=== PATIENT | female | born 1965 | race African-American/Black ===

== ENCOUNTER 2016-07-02 12:26 | Outpatient (CLI) | payer MEDICARE, MEDICAID | END 2016-07-02 12:28 | LOC: POD 12:26 | PROVIDERS: ATTEND Podiatrist | DX: E11.9 Type 2 diabetes mellitus without complications (principal); B35.1 Tinea unguium; M79.674 Pain in right toe(s); M79.675 Pain in left toe(s) | CPT/HCPCS: G0463 ==

== ENCOUNTER 2016-10-01 13:09 | Outpatient (CLI) | payer MEDICARE, OTHER | END 2016-10-01 13:10 | LOC: POD 13:09 | PROVIDERS: ATTEND Podiatrist | DX: B35.1 Tinea unguium (principal); M79.674 Pain in right toe(s); M79.675 Pain in left toe(s) | CPT/HCPCS: 11721; G0463 ==

== ENCOUNTER 2016-12-28 14:41 | Outpatient (CLI) | payer MEDICARE, OTHER | END 2016-12-28 14:42 | LOC: CARD 14:41 | PROVIDERS: ATTEND Internal Medicine Cardiovascular Disease | DX: I27.2 Other secondary pulmonary hypertension (principal) | CPT/HCPCS: G0463 ==

== ENCOUNTER 2016-12-31 13:11 | Outpatient (CLI) | payer MEDICARE, OTHER | END 2016-12-31 13:12 | LOC: POD 13:11 | PROVIDERS: ATTEND Podiatrist | DX: B35.1 Tinea unguium (principal); M79.674 Pain in right toe(s); M79.675 Pain in left toe(s) | CPT/HCPCS: 11721; G0463 ==

== ENCOUNTER 2017-04-15 13:19 | Outpatient (CLI) | payer MEDICARE, OTHER | END 2017-04-15 13:20 | LOC: POD 13:19 | PROVIDERS: ATTEND Podiatrist | DX: B35.1 Tinea unguium (principal); M79.674 Pain in right toe(s); M79.675 Pain in left toe(s) | CPT/HCPCS: 11721; G0463 ==

== ENCOUNTER 2017-07-15 13:31 | Outpatient (CLI) | payer MEDICARE, OTHER | END 2017-07-15 13:40 | LOC: POD 13:31 | PROVIDERS: ATTEND Podiatrist | DX: B35.1 Tinea unguium (principal); M79.674 Pain in right toe(s); M79.675 Pain in left toe(s); E11.42 Type 2 diabetes mellitus with diabetic polyneuropathy | CPT/HCPCS: 11721; G0463 ==

== ENCOUNTER 2017-07-26 12:17 | Outpatient (CLI) | payer MEDICARE, OTHER | END 2017-07-26 12:18 | LOC: CARD 12:17 | PROVIDERS: ATTEND Internal Medicine Cardiovascular Disease | DX: I27.0 Primary pulmonary hypertension (principal); I10 Essential (primary) hypertension; G47.30 Sleep apnea, unspecified; E66.9 Obesity, unspecified; M32.9 Systemic lupus erythematosus, unspecified; N18.5 Chronic kidney disease, stage 5; I77.0 Arteriovenous fistula, acquired | CPT/HCPCS: G0463 ==

== ENCOUNTER 2017-10-14 12:53 | Outpatient (CLI) | payer MEDICARE, OTHER | END 2017-10-14 12:54 | LOC: POD 12:53 | PROVIDERS: ATTEND Podiatrist | DX: B35.1 Tinea unguium (principal); M79.674 Pain in right toe(s); M79.675 Pain in left toe(s); E11.42 Type 2 diabetes mellitus with diabetic polyneuropathy | CPT/HCPCS: 11721; G0463 ==

== ENCOUNTER 2018-01-31 10:55 | Outpatient (CLI) | payer MEDICARE, OTHER | END 2018-01-31 10:56 | LOC: CARD 10:55 | PROVIDERS: ATTEND Internal Medicine Cardiovascular Disease | DX: I27.0 Primary pulmonary hypertension (principal); I10 Essential (primary) hypertension; G47.30 Sleep apnea, unspecified; E66.9 Obesity, unspecified; M32.9 Systemic lupus erythematosus, unspecified; N18.5 Chronic kidney disease, stage 5 | CPT/HCPCS: G0463 ==

== ENCOUNTER 2018-07-24 15:10 | Outpatient (CLI) | payer MEDICARE, OTHER ==
--- NOTE | 2018-07-27 09:27 | OP Clinic Progress Note ---
SUBJECTIVE: The patient is a 52-year-old female with diabetes mellitus type 2, chronic renal failure and systemic lupus erythematosus who presented to the clinic today for bilateral great toenail pain. She called in tears today requesting to come in and be seen due to pain in the inside of both great toenails. The patient states today that she has had them trimmed out about every 3 months in the past including by the previous physician here, Dr. Stern. She would like to have a more thorough treatment performed today to remove the inner edge of the toenail completely and see if it grows back and does better or not. The patient does not admit to any fevers, chills, nausea, vomiting, shortness of breath or chest pain at this time. OBJECTIVE: Vitals: Temperature 36.5 degrees Celsius, blood pressure 164/89, heart rate 86, respiration rate 20, pain 6/10, left worse than the right. Vascular: 1+ DP and PT pulses bilaterally. Capillary refill time is less than 3 seconds to the toes bilaterally. There is no edema noted bilaterally. Dermatologic: There is obvious evidence of incurvation of the medial border of the great toenail bilateral great toes. There is no obvious erythema or warmth or signs of infection of any kind. There are no other skin lesions or concerning areas noted either at this time. Musculoskeletal: There is pain on palpation noted on the medial border of the left and right great toenails. There are no other gross abnormalities noted bilaterally. Neurologic: Light touch sensation is intact to the toes bilaterally. Psychiatric: Mental status grossly normal. Affect normal. ASSESSMENT AND PLAN: 1. Onychocryptosis, left and right great toenails, medial border of both. 2. Diabetes mellitus, type 2. A discussion was made with the patient of a more aggressive procedure to numb the toes and remove the medial border of both great toenails. The patient would like to do this and understands that they will grow back and we will see if they grow back okay or if they become ingrown again. If they do, we will need to consider a more permanent procedure. We will have to determine if blood flow is good enough at that time. The patient had risks and benefits of the procedure that include but are not limited to bleeding and infection discussed with her and the patient has agreed both by written and verbal consent to go forward with the procedure at this time for a partial nail avulsion of the medial border of the left and right great toenails. Consent was signed and placed in the chart. The patient understands that the ingrown toenails may return and if so we may need to just do it again as a temporary procedure again or a more permanent procedure if we deem her blood flow good enough. PROCEDURE #1: An alcohol swab was used to cleanse the base of the right hallux base. An injection consisting of 6 mL of a 1:1 mix of 2% lidocaine plain and 0.5% Marcaine plain were injected into the base of the right great toe. Anesthesia was obtained and the toe was prepped with Betadine to prepare it for the procedure. At this time a hemostat was utilized to free the toenail medial nail border from the eponychium and underlying nail plate and with a nail splitter the medial edge was avulsed and removed with the hemostat. The site was rinsed with a copious amount of normal saline and then hemostasis obtained with pressure. Dressings were then applied consisting of triple antibiotic ointment, 4x4 gauze, 3-inch Ciera and 1-inch Coban beginning on the toe and ending on the distal forefoot to help hold it on the toe. The patient tolerated the procedure well. PROCEDURE #2: An identical procedure was performed on the left great toenail medial border. Of note, however, one thing that was different is that there was a small amount of brown fluid that came out of the underlying portion of the medial nail border. It was also obvious that this medial nail border had been digging in pretty deep and appeared to have penetrated the nail plate and I was able to probe right to bone where there was a small hole in the nail bed. The hole was measured approximately 0.1 x 0.1 cm in size. The wound site was flushed with extra normal saline than the right side. Dressings were applied in a like manner. A prescription for clindamycin 300 mg b.i.d. x10 days was sent to [facility] on [facility] in order to help protect the toe from infection while this heals over the bone. The patient understands the plans for not soaking the left foot and washing it last in a shower after it has been covered during the first part of the shower. The patient also was give home instructions to take with her. The patient knows that we will have her return to clinic on Tuesday next week as she is unable to do and we will check her procedure sites and make sure they are healing well. We will be especially cognizant of the left great toenail medial border where there was a small pressure wound where the nail was growing through the nail plate. It is obvious why she was having more pain on the left than the right. I do not believe there is any obvious ryan infection but I believe the clindamycin will be an appropriate safe measure as the bone was slightly exposed at this time. The patient will continue daily dressing changes with antibiotic ointment and a Band-Aid on both great toes starting tomorrow. Return to the clinic in 1 week from tomorrow to the health clinic next door and we will keep an eye on her there. We discussed with her the possibility of infection of the bone with the bone exposed but I believe the likelihood is still low at this time. We will make sure she is healing and if she is not healing over the next few weeks then we may need to consider x-rays and subsequent imaging to make sure she does not have a bone infection. The patient understands this and will begin taking antibiotic as soon as it is sent in the mail which will likely be tomorrow. We will also confirm at her next appointment that her blood pressure has come down by then. If not, then we will encourage her to see her primary care again. Yovanny Collier D.P.M. (Dictated/Not Signed) Seferino Job#: [id number] MTDD
== END 2018-07-24 15:12 ==
LOC: POD 15:10
PROVIDERS: ATTEND Podiatrist Foot & Ankle Surgery
DX: L60.0 Ingrowing nail (principal); E11.9 Type 2 diabetes mellitus without complications; M32.9 Systemic lupus erythematosus, unspecified; N17.9 Acute kidney failure, unspecified
CPT/HCPCS: 11730; J2001; J3490; A4554